=== PATIENT | female | born 1980 | race African-American/Black ===

== ENCOUNTER 2019-11-11 13:26 | Emergency (ER) | payer OTHER, MEDICAID ==
[~2019-11-11] VITALS: Ht 172.7 cm; Wt 117.9 kg
[2019-11-11 13:33] VITALS: BP 132/89
--- NOTE | 2019-11-11 14:50 | Diagnostic Imaging Report ---
EXAM: XR Chest, 1 View CLINICAL HISTORY: SOB TECHNIQUE: Frontal view of the chest. COMPARISON: None FINDINGS: Hardware: None. Lungs/pleura: Normal. No focal consolidation. No pleural effusion or pneumothorax. Heart/mediastinum: Normal. No cardiomegaly. Soft tissues: Unremarkable. Bones: No acute fracture. Upper abdomen: Normal. IMPRESSION: No acute disease identified.
--- NOTE | 2019-11-11 15:03 | Emergency Room Report ---
History of Present Illness General Chief Complaint: General Complaint Source: Patient Present Illness HPI 39-year-old female with no symptom medical history here complaining of 3 days of shortness of breath after accidentally inhaling bath salts that she was using a control. Reports that she was performed in the full dosing below and she accidentally inhaled it also she has been using a lot of bleach at home. Reports that that the cough and shortness of breath are worse at night. Patient also reports that she has lost her sense of taste however she has been the negative culture results that was just done a few days ago. Patient is sitting comfortably with stable signs 3 denies abdominal pain, nausea vomiting diarrhea, fever and chills. Requesting blood work to make sure that there was no chemical poisoning. I explained to her that we will do a chest x-ray and check her urine. Patient denies any drug use, alcohol intake, tobacco smoke. Has not taken medication for symptom relief. Allergies: Coded Allergies: No Known Allergies (Unverified , 11/11/19) COVID-19 Screening Contact w/high risk pt: No Recent Travel to affected area: No Experienced COVID-19 symptoms?: No COVID-19 Testing performed [employer]: No Patient History Past Medical History: see triage record Past Surgical History: none Pertinent Family History: none Last Menstrual Period: 09/2019 Now: No Immunizations: UTD Reviewed Nursing Documentation: PMH: Agreed; PSxH: Agreed Nursing Documentation-PMH Hx Hypertension: Yes Review of Systems All Other Systems: negative except mentioned in HPI Physical Exam Vital Signs Date Time Temp Pulse Resp B/P (MAP) Pulse Ox O2 Delivery O2 Flow Rate FiO2 11/11/19 13:33 98.2 89 19 132/89 (103) 98 Room Air Sp02 EP Interpretation: reviewed, normal General Appearance: no apparent distress, alert, GCS 15, non-toxic Head: normocephalic, atraumatic Eyes: bilateral eye normal inspection, bilateral eye PERRL ENT: hearing grossly normal, normal pharynx, no angioedema, normal voice Neck: full range of motion, supple/symm/no masses Respiratory: chest non-tender, lungs clear, normal breath sounds, speaking full sentences Cardiovascular #1: regular rate, rhythm, no edema Gastrointestinal: normal bowel sounds, non tender, soft, non-distended, no guarding, no rebound Rectal: deferred Genitourinary: no CVA tenderness Musculoskeletal: back normal Neurologic: alert, oriented Psychiatric: judgement/insight normal, memory normal, mood/affect normal, no suicidal/homicidal ideation Skin: no rash Lymphatic: no adenopathy Medical Decision Making PA Attestation All diagnoses and treatment plans were reviewed and discussed with my supervising physician Dr. Dominguez Diagnostic Impression: Primary Impression: Exposure to chemical inhalation Additional Impression: SOB (shortness of breath) ER Course 39-year-old female with no symptom medical history here complaining of 3 days of shortness of breath after accidentally inhaling bath salts that she was using a control. Reports that she was performed in the full dosing below and she accidentally inhaled it also she has been using a lot of bleach at home. Reports that that the cough and shortness of breath are worse at night. Patient also reports that she has lost her sense of taste however she has been the negative culture results that was just done a few days ago. Patient is sitting comfortably with stable signs 3 denies abdominal pain, nausea vomiting diarrhea, fever and chills. Requesting blood work to make sure that there was no chemical poisoning. I explained to her that we will do a chest x-ray and check her urine. Patient denies any drug use, alcohol intake, tobacco smoke. Has not taken medication for symptom relief. Ddx considered but are not limited to: Exposure to alcohol inhalation without complication, exposure to chemical inhalation with complications, shortness of breath, coronavirus, bronchitis Vital signs: are WNL, pt. is afebrile H&PE are most consistent with: Exposure to chemical inhalation without complication, shortness of breath ORDERS: Chest x-ray, UA, urine tox screen, urine test, Phenergan DM, albuterol ED INTERVENTIONS: None required at this time. DISCHARGE: At this time pt. is stable for d/c to home. Will provide printed patient care instructions, and any necessary prescriptions. Care plan and follow up instructions have been discussed with the patient prior to discharge. Follow-up primary care provider, if worsening symptoms return to emergency room Chest X-Ray Diagnostic Results Chest X-Ray Diagnostic Results : Chest X-Ray Ordered: Yes # of Views/Limited/Complete: 1 View Indication: Shortness of Breath EP Interpretation: Yes ANEESH Xray: Interpretation reviewed, by supervising MD, and agrees with findings. Interpretation: no consolidation, no effusion, no pneumothorax Impression: No acute disease Electronically Signed by: Justin Torre PA-C Last Vital Signs Date Time Temp Pulse Resp B/P (MAP) Pulse Ox O2 Delivery O2 Flow Rate FiO2 11/11/19 13:43 89 19 Room Air 11/11/19 13:33 98.2 132/89 98 Disposition: HOME, SELF-CARE Condition: Stable Scripts Albuterol Sulfate (VENTOLIN HFA) 18 Gm Hfa.aer.ad 2 PUFFS INH EVERY 6 HOURS, #18 GM 0 Refills Prov: Justin Villavicencio 11/11/19 D-Methorphan Hb/Prometh Hcl* (PROMETHAZINE-DM SYRUP*) 118 Ml Syrup 5 ML ORAL Q6H PRN for For Cough, #100 ML 0 Refills Prov: Justin Villavicencio 11/11/19 Referrals: NIECY LEDESMA,REFERRING (PCP) Patient Instructions: Chemical Inhalation Injury, Shortness of Breath, Easy-to- Read Additional Instructions: Take medication as directed, increase oral hydration, symptoms been 3 days post inhalation of chemical that caused her symptoms no further evaluation is needed at this time however do follow-up with your regular doctor, if worsening symptoms return to the emergency room. Justin Villavicencio November 11, 2019 15:03
[2019-11-11] MEDS ORDERED: VENTOLIN HFA18 GM INH (15:04)
[2019-11-11] MEDS ORDERED: PROMETHAZINE-D118 ML ORAL (15:04)
[2019-11-11 15:14] VITALS: BP 128/70
== END 2019-11-11 15:14 | disposition home or self-care (01) ==
LOC: EMR 14:25
DX: R06.02 Shortness of breath (principal); Z77.098 Contact with and (suspected) exposure to other hazardous, chiefly nonmedicinal, chemicals; I10 Essential (primary) hypertension; R05 Cough
CPT/HCPCS: 71045; 80307; 81025; 99283